=== PATIENT | female | born 1985 | race Two or more races ===

== ENCOUNTER 2020-06-27 07:07 | Day surgery (SDC) | payer OTHER ==
[2020-06-27] MEDS ORDERED: MORGIDOX100 MG PO (12:48)
[2020-06-27] MEDS ORDERED: Tylenol #3 PO (12:48)
== END 2020-06-27 17:40 | disposition home or self-care (01) ==
LOC: CIR.AMB 07:07
PROVIDERS: ATTEND Obstetrics & Gynecology
DX: D25.0 Submucous leiomyoma of uterus (principal); N84.0 Polyp of corpus uteri; Z20.828 Contact with and (suspected) exposure to other viral communicable diseases